=== PATIENT | female | born 1970 | race Caucasian/White ===

== ENCOUNTER 2020-01-19 16:14 | Observation (INO) ==
[2020-01-19] MEDS ORDERED: Aspirin 81 MG TAB.CHEW PO ONE (17:07)
[2020-01-19 17:38] LABS: Bilirubin,Urine Negative (Negative); Blood,Urine Negative (Negative); Clarity,Urine Clear (Clear); Color,Urine Light-Yellow (Yellow); Glucose,Urine (UA) Normal (Normal); Ketones,Urine Negative (Negative); Leukocyte Esterase,Urine Negative (Negative); Nitrite,Urine Negative (Negative); PH,Urine 6.5 pH Units (5.0-8.0); Protein,Urine Negative (Neg-Trace); Specific Gravity,Urine 1.019 (1.010-1.025); Urobilinogen,Urine Normal (Normal)
[2020-01-19 17:46] LABS: Basophils % 0.5 %; Eosinophils # 0.3 K/mcL (0.0-0.6); Eosinophils % 4.9 %; Hematocrit 28.8 % (35.3-44.9); Immature Granulocytes % 1.4 % (0-4); Lymphocytes # 1.4 K/mcL (0.6-4.6); Lymphocytes % 24.1 %; Mean Corpuscular HGB Conc 31.3 g/dL (31.6-35.5); Mean Corpuscular Hemoglobin 30.4 pg (28.0-33.3); Mean Corpuscular Volume 97.3 fL (83.0-100.0); Mean Platelet Volume 8.9 fL (9.4-12.4); Monocytes # 0.7 K/mcL (0.0-1.3); Monocytes % 12.9 %; Neutrophils # 3.2 K/mcL (1.6-8.9); Platelet Count 210 K/mcL (140-400); Red Blood Count 2.96 M/mcL (3.82-4.97); Red Cell Distribution Width 16.7 % (11.5-14.5); Segmented Neutrophils % 56.2 %; White Blood Count 5.7 K/mcL (4.3-11.1)
[2020-01-19 17:46] LABS: Hyaline Casts,Urine Moderate per lpf (None Seen); Mucus,Urine Few per lpf (None-Few); RBC,Urine 0-3 per hpf (0-3); WBC,Urine 0-3 per hpf (0-3)
[2020-01-19 17:48] LABS: Prothrombin Time 11.7 Seconds (9.4-12.1)
[2020-01-19 17:51] LABS: Activated Partial Thrombo Time 35.7 Seconds (26.0-36.0)
[2020-01-19 18:01] LABS: Alanine Aminotransferase 4 Units/L (7-52); Albumin 2.9 g/dL (3.5-5.7); Albumin/Globulin Ratio 1.5 (1.1-2.2); Alkaline Phosphatase 50 Units/L (34-104); Aspartate Amino Transferase 9 Units/L (13-39); BUN/Creatinine Ratio 17 (6-26); Bilirubin,Direct 0.1 mg/dL (0.0-0.2); Bilirubin,Indirect 0.1 mg/dL (0.0-1.0); Bilirubin,Total 0.2 mg/dL (0.3-1.0); Blood Urea Nitrogen 31 mg/dL (6-20); Calcium 8.3 mg/dL (8.6-10.3); Carbon Dioxide 32 mEq/L (23-29); Chloride 101 mEq/L (98-107); Globulin 1.9 g/dL (2.4-3.5); Glucose 71 mg/dL (70-105); Lipase 5 Units/L (11-82); Osmolality,Calculated 289 (280-300); Potassium 5.4 mEq/L (3.5-5.1); Sodium 137 mEq/L (136-145); Total Protein 4.8 g/dL (6.4-8.9); Troponin I < 0.03 ng/mL (< 0.04); Valproate 65 mcg/mL (50-100); eGFR For African Americans 35 (> 60); eGFR For Non-African Americans 29 (> 60)
[2020-01-19] MEDS ORDERED: Acetaminophen 325 MG TABLET PO ONE (18:15)
[2020-01-19] MEDS ORDERED: *HR* FentaNYL (PF) 100 MCG/2 ML VIAL IVP ONE (23:02)
[2020-01-19] MEDS ORDERED: Furosemide 20 MG/2 ML VIAL IVP ONE (23:02)
[2020-01-20] MEDS ORDERED: Naloxone 0.4 MG/ML INJ IVP PRN (00:13)
[2020-01-20] MEDS ORDERED: *HR* Promethazine 25 MG/ML VIAL IVP PRN (00:13)
[2020-01-20] MEDS ORDERED: Nitroglycerin 0.4 MG TAB.SUBL SL PRN (00:15)
[2020-01-20] MEDS ORDERED: Perflutren Lipid Microsphere 1.3 ML in 0.9 % Sodium Chloride 8.7 ML IVP PRN (00:17)
[2020-01-20 01:23] LABS: Prothrombin Time 11.4 Seconds (9.4-12.1)
[2020-01-20 01:39] LABS: Calcium 8.5 mg/dL (8.6-10.3); Chol/HDL Ratio 1.9 (0-4.9); Magnesium 2.1 mg/dL (1.6-2.6); Potassium 4.3 mEq/L (3.5-5.1)
[2020-01-20 02:03] LABS: Basophils % 0.8 %; Eosinophils # 0.3 K/mcL (0.0-0.6); Eosinophils % 5.2 %; Hematocrit 26.5 % (35.3-44.9); Hemoglobin 8.6 g/dL (11.5-15.4); Immature Granulocytes % 2.7 % (0-4); Lymphocytes # 1.4 K/mcL (0.6-4.6); Lymphocytes % 29.8 %; Mean Corpuscular HGB Conc 32.5 g/dL (31.6-35.5); Mean Corpuscular Hemoglobin 30.4 pg (28.0-33.3); Mean Corpuscular Volume 93.6 fL (83.0-100.0); Monocytes # 0.7 K/mcL (0.0-1.3); Monocytes % 13.4 %; Neutrophils # 2.3 K/mcL (1.6-8.9); Platelet Count 160 K/mcL (140-400); Red Blood Count 2.83 M/mcL (3.82-4.97); Red Cell Distribution Width 16.3 % (11.5-14.5); Segmented Neutrophils % 48.1 %; White Blood Count 4.8 K/mcL (4.3-11.1)
[2020-01-20] MEDS ORDERED: D5% in Water 1,000 ML IVC PRN (04:13)
[2020-01-20] MEDS ORDERED: *HR* Dextrose 50 % in Water (Vial) 50 ML VIAL IVP PRN (04:13)
[2020-01-20] MEDS ORDERED: Dextrose Gel 15 GM/37.5 ML TUBE PO PRN ×2 (04:13)
[2020-01-20] MEDS: Insulin LISPRO 300 UNITS/3 ML VIAL SQ SCH ×2 (06:04→13:24)
[2020-01-20 06:44] LABS: Creatinine,Urine 31 mg/dL; Microalbumin,Urine < 7 mg/L; Protein/Creatinine Ratio,Urine 0.13 mg/mg (0.00-0.20); Sodium, Urine 83.2 mEq/L
[2020-01-20] MEDS ORDERED: Loratadine 10 MG TABLET PO SCH (09:00)
[2020-01-20] MEDS ORDERED: Aspirin 81 MG TAB.CHEW PO SCH (09:00)
[2020-01-20] MEDS ORDERED: Furosemide 40 MG/4 ML VIAL IVP SCH (09:00)
[2020-01-20 09:12] LABS: Estimated Average Glucose 100 mg/dl
[2020-01-20 12:09] LABS: Immature Reticulocyte % 14.2 % (11.0-38.0); Retculocyte # 0.07 M/mcL (0.05-0.10); Reticulocyte % 1.9 % (1.6-2.8)
[2020-01-20 12:30] LABS: % Iron Saturation 12 % (15-50); Iron 58 mcg/dL (50-170); Transferrin 355 mg/dL (203-362)
[2020-01-20 12:48] LABS: Ferritin 15 ng/mL (10-120)
[2020-01-20 12:53] LABS: Folate 9.4 ng/mL (3.0-16.0)
[2020-01-20 13:30] VITALS: BP 132/97
[2020-01-20] MEDS ORDERED: *HR* Heparin 5,000 UNIT/ML VIAL SQ SCH (14:00)
[2020-01-20] MEDS ORDERED: Divalproex (12 HR) 500 MG TABLET PO SCH (15:00)
== END 2020-01-20 17:30 | disposition short-term general hospital (02) ==
LOC: EMEROOARM 16:14 → 3BNU 16:14
PROVIDERS: ADMIT Family Medicine; ATTEND Family Medicine

== ENCOUNTER 2020-05-24 16:16 | Inpatient (IN) ==
[2020-05-24] MEDS ORDERED: Aspirin 325 MG TABLET PO ONE (17:04)
[2020-05-24] MEDS ORDERED: Metoclopramide 10 MG/2 ML VIAL IVP ONE (17:04)
[2020-05-24] MEDS ORDERED: 0.9 % Sodium Chloride 1,000 ML IVC ONE ×2 (17:04→22:59)
[2020-05-24 17:26] LABS: Basophils # 0.1 K/mcL (0.0-0.2); Basophils % 0.8 %; Eosinophils % 0.6 %; Hematocrit 31.5 % (35.3-44.9); Hemoglobin 9.3 g/dL (11.5-15.4); Immature Granulocytes % 1.6 % (0-4); Lymphocytes # 1.8 K/mcL (0.6-4.6); Lymphocytes % 29.1 %; Mean Corpuscular HGB Conc 29.5 g/dL (31.6-35.5); Mean Corpuscular Hemoglobin 26.7 pg (28.0-33.3); Mean Corpuscular Volume 90.5 fL (83.0-100.0); Mean Platelet Volume 9.3 fL (9.4-12.4); Monocytes # 0.7 K/mcL (0.0-1.3); Monocytes % 10.3 %; Neutrophils # 3.7 K/mcL (1.6-8.9); Platelet Count 399 K/mcL (140-400); Red Blood Count 3.48 M/mcL (3.82-4.97); Red Cell Distribution Width 20.6 % (11.5-14.5); Segmented Neutrophils % 57.6 %; White Blood Count 6.3 K/mcL (4.3-11.1)
[2020-05-24 17:36] LABS: INR 1.1; Prothrombin Time 12.6 Seconds (9.4-12.1)
[2020-05-24] MEDS ORDERED: Azithromycin 500 MG in D5% in Water 250 ML IVPB ONE (17:49)
[2020-05-24 17:50] LABS: BUN/Creatinine Ratio 10 (6-26); Blood Urea Nitrogen 13 mg/dL (6-20); Calcium 8.9 mg/dL (8.6-10.3); Carbon Dioxide 27 mEq/L (23-29); Chloride 102 mEq/L (98-107); Glucose 70 mg/dL (70-105); Osmolality,Calculated 289 (280-300); Potassium 4.1 mEq/L (3.5-5.1); Sodium 140 mEq/L (136-145); eGFR For African Americans 50 (> 60); eGFR For Non-African Americans 41 (> 60)
[2020-05-24 17:51] LABS: Troponin I < 0.03 ng/mL (< 0.04)
[2020-05-24] MEDS ORDERED: Naloxone 0.4 MG/ML INJ IVP PRN (21:14)
[2020-05-24 22:49] LABS: Bilirubin,Urine Negative (Negative); Blood,Urine Trace (Negative); Clarity,Urine Clear (Clear); Color,Urine Colorless (Yellow); Glucose,Urine (UA) Normal (Normal); Hyaline Casts,Urine Few per lpf (None Seen); Ketones,Urine Negative (Negative); Leukocyte Esterase,Urine Negative (Negative); Mucus,Urine Few per lpf (None-Few); Nitrite,Urine Negative (Negative); PH,Urine 6.5 pH Units (5.0-8.0); Protein,Urine Negative (Neg-Trace); Specific Gravity,Urine 1.011 (1.010-1.025); Squamous Epithelial Cell,Urine Few per hpf (None-Few); Urobilinogen,Urine Normal (Normal); WBC,Urine 0-3 per hpf (0-3)
[2020-05-24] MEDS ORDERED: *HR* Promethazine 25 MG/ML VIAL IM ONE (22:58)
[2020-05-24 22:59] LABS: Amphetamine Screen,Urine Negative ng/mL (Cutoff=1000); Barbiturate Screen,Urine Negative ng/mL (Cutoff=200); Benzodiazepines Screen,Urine Negative ng/mL (Cutoff=200); Cannabinoid Screen,Urine Negative ng/mL (Cutoff = 50); Cocaine Screen,Urine Negative ng/mL (Cutoff= 300); Opiate Screen,Urine Positive ng/mL (Cutoff=300); Phencyclidine Screen,Urine Negative ng/mL (Cutoff=25)
[2020-05-24] MEDS ORDERED: Perflutren Lipid Microsphere 1.3 ML in 0.9 % Sodium Chloride 8.7 ML IVP PRN (23:02)
[2020-05-24] MEDS: *HR* HYDROcodone/Acet 5/325 mg TABLET PO PRN (23:17)
[2020-05-24] MEDS ORDERED: Dextrose Gel 15 GM/37.5 ML TUBE PO PRN (23:28)
[2020-05-25 04:25] LABS: INR 1.1; Prothrombin Time 12.6 Seconds (9.4-12.1)
[2020-05-25 04:43] LABS: Alanine Aminotransferase 3 Units/L (7-52); Albumin 2.6 g/dL (3.5-5.7); Albumin/Globulin Ratio 1.4 (1.1-2.2); Alkaline Phosphatase 95 Units/L (34-104); Aspartate Amino Transferase 10 Units/L (13-39); BUN/Creatinine Ratio 12 (6-26); Bilirubin,Total 0.2 mg/dL (0.3-1.0); Blood Urea Nitrogen 12 mg/dL (6-20); Calcium 7.7 mg/dL (8.6-10.3); Carbon Dioxide 28 mEq/L (23-29); Chloride 104 mEq/L (98-107); Chol/HDL Ratio 2.7 (0-4.9); Cholesterol 107 mg/dL (< 200); Globulin 1.8 g/dL (2.4-3.5); Glucose 69 mg/dL (70-105); HDL Cholesterol 40 mg/dL (40-59); LDL Cholesterol,Calculated 26 mg/dL (< 100); Osmolality,Calculated 286 (280-300); Potassium 3.7 mEq/L (3.5-5.1); Sodium 139 mEq/L (136-145); Total Protein 4.4 g/dL (6.4-8.9); Triglycerides 207 mg/dL (< 150); Troponin I < 0.03 ng/mL (< 0.04); eGFR For African Americans > 60 (> 60); eGFR For Non-African Americans 57 (> 60)
[2020-05-25] MEDS: Insulin LISPRO 300 UNITS/3 ML VIAL SUBQ SCH ×4 (08:11→19:39)
[2020-05-25] MEDS: *HR* Dextrose 50 % in Water (Vial) 50 ML VIAL IVP PRN ×2 (08:13→11:27)
[2020-05-25] MEDS: cefTRIAXone 1,000 MG in Water for inj. (sterile) 10 ML IVP SCH (08:18)
[2020-05-25] MEDS: *HR* HYDROcodone/Acet 5/325 mg TABLET PO PRN ×2 (08:18→17:05)
[2020-05-25] MEDS: Aspirin 81 MG TAB.CHEW PO SCH (10:52)
[2020-05-25] MEDS: Ondansetron 4 MG/2 ML VIAL IVP PRN ×2 (10:52→17:05)
[2020-05-25 11:20] LABS: Estimated Average Glucose 100 mg/dl; Hemoglobin A1C 5.1 %
[2020-05-25] MEDS: Vancomycin Oral Soln 125 MG/2.5 ML UDC PO SCH ×3 (14:05→19:39)
[2020-05-25] MEDS: Azithromycin 500 MG in D5% in Water 250 ML IVPB SCH (16:17)
[2020-05-25] MEDS: Divalproex (12 HR) 500 MG TABLET PO SCH (16:17)
[2020-05-25] MEDS: traZODone 50 MG TABLET PO SCH (19:37)
[2020-05-26] MEDS: Ondansetron 4 MG/2 ML VIAL IVP PRN ×3 (01:18→16:33)
[2020-05-26] MEDS: *HR* HYDROcodone/Acet 5/325 mg TABLET PO PRN ×3 (01:18→16:32)
[2020-05-26 05:27] LABS: Basophils % 0.6 %; Eosinophils # 0.1 K/mcL (0.0-0.6); Eosinophils % 1.7 %; Hemoglobin 7.9 g/dL (11.5-15.4); Immature Granulocytes % 1.5 % (0-4); Lymphocytes # 1.9 K/mcL (0.6-4.6); Lymphocytes % 35.2 %; Mean Corpuscular HGB Conc 29.3 g/dL (31.6-35.5); Mean Corpuscular Hemoglobin 25.6 pg (28.0-33.3); Mean Corpuscular Volume 87.4 fL (83.0-100.0); Mean Platelet Volume 8.8 fL (9.4-12.4); Monocytes # 0.5 K/mcL (0.0-1.3); Monocytes % 9.3 %; Neutrophils # 2.7 K/mcL (1.6-8.9); Platelet Count 318 K/mcL (140-400); Red Blood Count 3.09 M/mcL (3.82-4.97); Red Cell Distribution Width 20.6 % (11.5-14.5); Segmented Neutrophils % 51.7 %; White Blood Count 5.3 K/mcL (4.3-11.1)
[2020-05-26 05:47] LABS: BUN/Creatinine Ratio 10 (6-26); Blood Urea Nitrogen 9 mg/dL (6-20); Calcium 8.3 mg/dL (8.6-10.3); Carbon Dioxide 26 mEq/L (23-29); Chloride 106 mEq/L (98-107); Glucose 67 mg/dL (70-105); Osmolality,Calculated 283 (280-300); Potassium 4.5 mEq/L (3.5-5.1); Sodium 138 mEq/L (136-145); eGFR For African Americans > 60 (> 60); eGFR For Non-African Americans > 60 (> 60)
[2020-05-26] MEDS: Dextrose Gel 15 GM/37.5 ML TUBE PO PRN ×3 (06:29→23:39)
[2020-05-26] MEDS: Insulin LISPRO 300 UNITS/3 ML VIAL SUBQ SCH ×4 (08:36→20:37)
[2020-05-26] MEDS: Divalproex (12 HR) 500 MG TABLET PO SCH ×2 (09:28→16:31)
[2020-05-26] MEDS: Aspirin 81 MG TAB.CHEW PO SCH (09:28)
[2020-05-26] MEDS: FLUoxetine 20 MG CAPSULE PO SCH (09:28)
[2020-05-26] MEDS: cefTRIAXone 1,000 MG in Water for inj. (sterile) 10 ML IVP SCH (09:29)
[2020-05-26] MEDS: Vancomycin Oral Soln 125 MG/2.5 ML UDC PO SCH ×4 (09:29→20:37)
[2020-05-26] MEDS: *HR* Dextrose 50 % in Water (Vial) 50 ML VIAL IVP PRN (15:11)
[2020-05-26] MEDS: Azithromycin 500 MG in D5% in Water 250 ML IVPB SCH (16:30)
[2020-05-26] MEDS: traZODone 50 MG TABLET PO SCH (20:36)
[2020-05-27] MEDS: Ondansetron 4 MG/2 ML VIAL IVP PRN ×3 (01:48→20:03)
[2020-05-27] MEDS: *HR* HYDROcodone/Acet 5/325 mg TABLET PO PRN ×3 (01:49→22:44)
[2020-05-27 04:30] LABS: Red Cell Distribution Width 20.3 % (11.5-14.5)
[2020-05-27 04:31] LABS: Basophils % 0.4 %; Eosinophils # 0.1 K/mcL (0.0-0.6); Eosinophils % 2.2 %; Hematocrit 26.9 % (35.3-44.9); Hemoglobin 7.9 g/dL (11.5-15.4); Immature Granulocytes % 1.8 % (0-4); Lymphocytes % 34.2 %; Mean Corpuscular HGB Conc 29.4 g/dL (31.6-35.5); Mean Corpuscular Hemoglobin 26.4 pg (28.0-33.3); Mean Platelet Volume 9.3 fL (9.4-12.4); Monocytes # 0.6 K/mcL (0.0-1.3); Monocytes % 12.1 %; Neutrophils # 2.5 K/mcL (1.6-8.9); Platelet Count 327 K/mcL (140-400); Red Blood Count 2.99 M/mcL (3.82-4.97); Segmented Neutrophils % 49.3 %; White Blood Count 5.1 K/mcL (4.3-11.1)
[2020-05-27 04:33] LABS: Lymphocytes # 1.7 K/mcL (0.6-4.6)
[2020-05-27 04:47] LABS: BUN/Creatinine Ratio 9 (6-26); Blood Urea Nitrogen 7 mg/dL (6-20); Calcium 7.9 mg/dL (8.6-10.3); Carbon Dioxide 24 mEq/L (23-29); Chloride 106 mEq/L (98-107); Glucose 75 mg/dL (70-105); Osmolality,Calculated 281 (280-300); Potassium 4.5 mEq/L (3.5-5.1); Sodium 137 mEq/L (136-145); eGFR For African Americans > 60 (> 60); eGFR For Non-African Americans > 60 (> 60)
[2020-05-27 05:10] LABS: Platelet Estimate Normal (Normal)
[2020-05-27] MEDS: Insulin LISPRO 300 UNITS/3 ML VIAL SUBQ SCH ×4 (09:36→20:20)
[2020-05-27] MEDS: Aspirin 81 MG TAB.CHEW PO SCH (09:52)
[2020-05-27] MEDS: FLUoxetine 20 MG CAPSULE PO SCH (09:53)
[2020-05-27] MEDS: Divalproex (12 HR) 500 MG TABLET PO SCH ×2 (09:54→16:40)
[2020-05-27] MEDS: cefTRIAXone 1,000 MG in Water for inj. (sterile) 10 ML IVP SCH (09:54)
[2020-05-27] MEDS: Vancomycin Oral Soln 125 MG/2.5 ML UDC PO SCH ×4 (09:54→20:02)
[2020-05-27 13:55] LABS: % Iron Saturation 8 % (15-50); Iron 24 mcg/dL (50-170); Transferrin 222 mg/dL (203-362)
[2020-05-27 14:29] LABS: Folate 4.4 ng/mL (3.0-16.0)
[2020-05-27] MEDS: Azithromycin 500 MG in D5% in Water 250 ML IVPB SCH (16:40)
[2020-05-27] MEDS: traZODone 50 MG TABLET PO SCH (20:02)
[2020-05-27] MEDS: Dextrose Gel 15 GM/37.5 ML TUBE PO PRN (22:45)
[2020-05-28] MEDS: D5% in Water 1,000 ML IVC PRN ×2 (03:46→14:53)
[2020-05-28] MEDS: Ondansetron 4 MG/2 ML VIAL IVP PRN ×2 (03:47→21:50)
[2020-05-28 05:24] LABS: Mean Platelet Volume 9.2 fL (9.4-12.4); Red Cell Distribution Width 20.1 % (11.5-14.5)
[2020-05-28 05:25] LABS: Hematocrit 30.1 % (35.3-44.9); Hemoglobin 8.8 g/dL (11.5-15.4); Mean Corpuscular HGB Conc 29.2 g/dL (31.6-35.5); Mean Corpuscular Hemoglobin 25.8 pg (28.0-33.3); Mean Corpuscular Volume 88.3 fL (83.0-100.0); Platelet Count 327 K/mcL (140-400); Red Blood Count 3.41 M/mcL (3.82-4.97)
[2020-05-28 05:42] LABS: Alanine Aminotransferase 4 Units/L (7-52); Albumin 2.4 g/dL (3.5-5.7); Albumin/Globulin Ratio 1.2 (1.1-2.2); Alkaline Phosphatase 108 Units/L (34-104); Aspartate Amino Transferase 12 Units/L (13-39); BUN/Creatinine Ratio 9 (6-26); Bilirubin,Total 0.2 mg/dL (0.3-1.0); Blood Urea Nitrogen 7 mg/dL (6-20); Carbon Dioxide 24 mEq/L (23-29); Chloride 106 mEq/L (98-107); Glucose 72 mg/dL (70-105); Osmolality,Calculated 279 (280-300); Potassium 5.3 mEq/L (3.5-5.1); Sodium 136 mEq/L (136-145); Total Protein 4.4 g/dL (6.4-8.9); eGFR For African Americans > 60 (> 60); eGFR For Non-African Americans > 60 (> 60)
[2020-05-28] MEDS: *HR* HYDROcodone/Acet 5/325 mg TABLET PO PRN ×3 (05:51→21:50)
[2020-05-28] MEDS: Divalproex (12 HR) 500 MG TABLET PO SCH ×2 (07:52→17:34)
[2020-05-28] MEDS: FLUoxetine 20 MG CAPSULE PO SCH (07:52)
[2020-05-28] MEDS: Insulin LISPRO 300 UNITS/3 ML VIAL SUBQ SCH ×4 (07:53→20:28)
[2020-05-28] MEDS: Aspirin 81 MG TAB.CHEW PO SCH (07:53)
[2020-05-28] MEDS: Vancomycin Oral Soln 125 MG/2.5 ML UDC PO SCH ×4 (07:54→21:44)
[2020-05-28] MEDS: cefTRIAXone 1,000 MG in Water for inj. (sterile) 10 ML IVP SCH (07:54)
[2020-05-28] MEDS: *HR* Dextrose 50 % in Water (Vial) 50 ML VIAL IVP PRN ×2 (10:22→13:32)
[2020-05-28] MEDS ORDERED: Lidocaine Viscous Oral Soln 15 ML SOLUTION MM PRN (11:23)
[2020-05-28] MEDS ORDERED: 0.9 % Sodium Chloride 500 ML IVC ONE (11:24)
[2020-05-28] MEDS: *HR* Midazolam HCl 5 MG/5 ML VIAL IVP PRN ×3 (11:50→12:00)
[2020-05-28] MEDS: *HR* FentaNYL (PF) 100 MCG/2 ML VIAL IVP PRN ×3 (11:50→12:00)
[2020-05-28] MEDS: Azithromycin 500 MG in D5% in Water 250 ML IVPB SCH (17:34)
[2020-05-29] MEDS: Ondansetron 4 MG/2 ML VIAL IVP PRN ×3 (04:26→20:09)
[2020-05-29] MEDS: *HR* HYDROcodone/Acet 5/325 mg TABLET PO PRN ×3 (04:27→20:08)
[2020-05-29] MEDS: Dextrose Gel 15 GM/37.5 ML TUBE PO PRN (06:32)
[2020-05-29] MEDS: Insulin LISPRO 300 UNITS/3 ML VIAL SUBQ SCH ×2 (07:36→10:13)
[2020-05-29] MEDS: Aspirin 81 MG TAB.CHEW PO SCH (07:46)
[2020-05-29] MEDS: FLUoxetine 20 MG CAPSULE PO SCH (07:46)
[2020-05-29] MEDS: Vancomycin Oral Soln 125 MG/2.5 ML UDC PO SCH ×4 (07:46→20:08)
[2020-05-29] MEDS: cefTRIAXone 1,000 MG in Water for inj. (sterile) 10 ML IVP SCH (07:47)
[2020-05-29] MEDS: Divalproex (12 HR) 500 MG TABLET PO SCH ×2 (07:48→16:57)
[2020-05-29 08:27] LABS: Hematocrit 31.2 % (35.3-44.9); Hemoglobin 9.2 g/dL (11.5-15.4); Mean Corpuscular HGB Conc 29.5 g/dL (31.6-35.5); Mean Corpuscular Hemoglobin 26.1 pg (28.0-33.3); Mean Corpuscular Volume 88.4 fL (83.0-100.0); Mean Platelet Volume 8.9 fL (9.4-12.4); Platelet Count 366 K/mcL (140-400); Red Blood Count 3.53 M/mcL (3.82-4.97); Red Cell Distribution Width 19.9 % (11.5-14.5); White Blood Count 5.1 K/mcL (4.3-11.1)
[2020-05-29 08:42] LABS: BUN/Creatinine Ratio 8 (6-26); Blood Urea Nitrogen 6 mg/dL (6-20); Calcium 8.3 mg/dL (8.6-10.3); Carbon Dioxide 26 mEq/L (23-29); Chloride 102 mEq/L (98-107); Glucose 82 mg/dL (70-105); Osmolality,Calculated 273 (280-300); Potassium 4.4 mEq/L (3.5-5.1); Sodium 133 mEq/L (136-145); eGFR For African Americans > 60 (> 60); eGFR For Non-African Americans > 60 (> 60)
[2020-05-29] MEDS: D5% in Water 1,000 ML IVC PRN (10:09)
[2020-05-29] MEDS: *HR* Dextrose 50 % in Water (Vial) 50 ML VIAL IVP PRN (11:37)
[2020-05-29] MEDS ORDERED: D10% in Water 500 ML IV SOLUTION IVC PRN (15:43)
[2020-05-29] MEDS: D10% in Water 500 ML IVC PRN ×2 (16:57→23:01)
[2020-05-29] MEDS: Azithromycin 500 MG in D5% in Water 250 ML IVPB SCH (18:41)
[2020-05-29] MEDS: traZODone 50 MG TABLET PO SCH (20:08)
[2020-05-30] MEDS ORDERED: D10% in Water 500 ML IVC PRN (00:45)
[2020-05-30] MEDS: Ondansetron 4 MG/2 ML VIAL IVP PRN ×3 (04:55→22:03)
[2020-05-30] MEDS: *HR* HYDROcodone/Acet 5/325 mg TABLET PO PRN ×2 (04:55→13:30)
[2020-05-30] MEDS: cefTRIAXone 1,000 MG in Water for inj. (sterile) 10 ML IVP SCH (07:50)
[2020-05-30] MEDS: Aspirin 81 MG TAB.CHEW PO SCH (07:50)
[2020-05-30] MEDS: Vancomycin Oral Soln 125 MG/2.5 ML UDC PO SCH ×4 (07:50→19:40)
[2020-05-30] MEDS: FLUoxetine 20 MG CAPSULE PO SCH (07:50)
[2020-05-30] MEDS: Divalproex (12 HR) 500 MG TABLET PO SCH ×2 (07:50→17:37)
[2020-05-30 11:26] LABS: Hematocrit 31.4 % (35.3-44.9); Mean Corpuscular HGB Conc 29.3 g/dL (31.6-35.5); Mean Corpuscular Hemoglobin 25.5 pg (28.0-33.3); Mean Platelet Volume 8.9 fL (9.4-12.4); Platelet Count 392 K/mcL (140-400); Red Blood Count 3.61 M/mcL (3.82-4.97); Red Cell Distribution Width 19.7 % (11.5-14.5)
[2020-05-30 11:37] LABS: Hemoglobin 9.2 g/dL (11.5-15.4); White Blood Count 6.5 K/mcL (4.3-11.1)
[2020-05-30 11:43] LABS: BUN/Creatinine Ratio 5 (6-26); Blood Urea Nitrogen 4 mg/dL (6-20); Calcium 7.9 mg/dL (8.6-10.3); Carbon Dioxide 25 mEq/L (23-29); Chloride 104 mEq/L (98-107); Glucose 74 mg/dL (70-105); Osmolality,Calculated 276 (280-300); Potassium 4.5 mEq/L (3.5-5.1); Sodium 135 mEq/L (136-145); eGFR For African Americans > 60 (> 60); eGFR For Non-African Americans > 60 (> 60)
[2020-05-30] MEDS: Azithromycin 500 MG in D5% in Water 250 ML IVPB SCH (17:38)
[2020-05-30] MEDS: traZODone 50 MG TABLET PO SCH (19:40)
[2020-05-30] MEDS ORDERED: *HR* OxyCODONE/APAP 10/325 TABLET PO ONE (21:28)
[2020-05-31] MEDS: Ondansetron 4 MG/2 ML VIAL IVP PRN ×2 (04:21→11:55)
[2020-05-31] MEDS: *HR* HYDROcodone/Acet 5/325 mg TABLET PO PRN ×2 (04:21→16:05)
[2020-05-31] MEDS: Dextrose Gel 15 GM/37.5 ML TUBE PO PRN (07:02)
[2020-05-31] MEDS: Divalproex (12 HR) 500 MG TABLET PO SCH ×2 (08:29→16:05)
[2020-05-31] MEDS: FLUoxetine 20 MG CAPSULE PO SCH (08:30)
[2020-05-31] MEDS: Aspirin 81 MG TAB.CHEW PO SCH (08:30)
[2020-05-31] MEDS: cefTRIAXone 1,000 MG in Water for inj. (sterile) 10 ML IVP SCH (08:32)
[2020-05-31] MEDS: Vancomycin Oral Soln 125 MG/2.5 ML UDC PO SCH ×3 (08:34→16:05)
[2020-05-31] MEDS ORDERED: Acetaminophen IV 500 MG/50 ML BAG IVPB ONE (08:57)
[2020-05-31 12:49] LABS: Hemoglobin 9.9 g/dL (11.5-15.4); Red Cell Distribution Width 19.9 % (11.5-14.5)
[2020-05-31 12:50] LABS: Hematocrit 33.7 % (35.3-44.9); Mean Corpuscular HGB Conc 29.4 g/dL (31.6-35.5); Mean Corpuscular Volume 88.5 fL (83.0-100.0); Platelet Count 420 K/mcL (140-400); Red Blood Count 3.81 M/mcL (3.82-4.97); White Blood Count 6.1 K/mcL (4.3-11.1)
[2020-05-31 13:09] LABS: BUN/Creatinine Ratio 11 (6-26); Blood Urea Nitrogen 8 mg/dL (6-20); Calcium 8.6 mg/dL (8.6-10.3); Carbon Dioxide 25 mEq/L (23-29); Chloride 103 mEq/L (98-107); Glucose 82 mg/dL (70-105); Osmolality,Calculated 275 (280-300); Potassium 4.4 mEq/L (3.5-5.1); Sodium 134 mEq/L (136-145); eGFR For African Americans > 60 (> 60); eGFR For Non-African Americans > 60 (> 60)
[2020-05-31 18:01] LABS: Adenovirus Not Detected (Not Detect); Bordetella Pertussis Not Detected (Not Detect); Chlamydophila pneumoniae Not Detected (Not Detect); Coronavirus 229E Not Detected (Not Detect); Coronavirus HKU1 Not Detected (Not Detect); Coronavirus NL63 Not Detected (Not Detect); Coronavirus OC43 Not Detected (Not Detect); Human Metapneumovirus Not Detected (Not Detect); Human Rhinovirus/Enterovirus Not Detected (Not Detect); Influenza A Subtype 2009 H1 Not Detected (Not Detect); Influenza B Not Detected (Not Detect); Mycoplasma pneumoniae Not Detected (Not Detect); Parainfluenza Virus 1 Not Detected (Not Detect); Parainfluenza Virus 2 Not Detected (Not Detect); Parainfluenza Virus 3 Not Detected (Not Detect); Parainfluenza Virus 4 Not Detected (Not Detect); Respiratory Syncytial Virus Not Detected (Not Detect); SARS-CoV-2 Not Detected (Not Detect)
[2020-05-31 18:39] VITALS: BP 135/84
[2020-06-17] MEDS ORDERED: Cyanocobalamin (B-12) 1,000 MCG/ML VIAL IM SCH (09:00)
== END 2020-05-31 20:54 | DRG 64 ==
LOC: 3BNU 16:16 → EMEROOARM 16:16 → SUATTDRO 19:57 → 3BNU 21:12 → SUATTDRO 05-25 13:20
PROVIDERS: ADMIT Internal Medicine; ATTEND Internal Medicine